=== PATIENT | female | born 1950 | race Caucasian/White ===

== ENCOUNTER 2017-06-11 17:02 | Emergency (ER) | payer OTHER, BC ==
[2017-06-11] MEDS ORDERED: LET GEL TOPICAL 1 EA SYR TP ONE (17:20)
--- NOTE | 2017-06-11 17:25 | EDPHY ---
H & P Time Seen by Provider: 06/11/17 17:14 HPI/ROS: CHIEF COMPLAINT: Right hand pain History by patient and family HISTORY OF PRESENT ILLNESS: 66-year-old woman status post stroke who is wheelchair-bound is brought in by her family after her right hand which is weak and immobile got caught between the wheelchair and wall going up the ramp to her house crushing her hand. Her last tetanus shot was 6 years ago. They deny any other pain or injury. She does complain of pain in her hand. Patient is on Plavix. REVIEW OF SYSTEMS: As in HPI, and all other systems reviewed and are negative Smoking Status: Current every day smoker Physical Exam: General Appearance: Alert and no distress. Head: Normocephalic, atraumatic, poor dentition Eyes: Pupils equal and round no injection. Extraocular movements are intact. Musculoskeletal: Neck is supple and nontender. Extremities: Right hand positive large hematoma over dorsal 1st and 2nd metacarpals with multiple abrasions, chronic contraction of all fingers, distal cap refill less than 2 sec, distal sensation is difficult to assess. Skin: No rashes or lesions except as described above. Constitutional: Initial Vital Signs Temperature (C) 37.2 C 06/11/17 17:32 Heart Rate 85 06/11/17 17:32 Respiratory Rate 14 06/11/17 17:32 Blood Pressure 109/73 06/11/17 17:32 O2 Sat (%) 92 06/11/17 17:32 O2 Delivery Mode Room Air Allergies/Adverse Reactions: Sulfa (Sulfonamide Antibiotics) Allergy (Severe, Verified 06/11/17 17:28) Hives adhesive Allergy (Verified 06/11/17 17:28) Home Medications: Medication Instructions Recorded LEVETIRACETAM [Keppra 750 mg] 750 mg PO BID 06/01/15 Verapamil ER [Calan SR/ER 240MG 240 mg PO DAILY8 06/01/15 (*)] lamoTRIgine [Lamictal] 200 mg PO BID 06/01/15 Clopidogrel Bisulfate [Plavix] 75 mg PO DAILY #30 tab 06/02/15 Rosuvastatin Calcium [Crestor 5mg] 5 mg PO DAILY #30 06/02/15 Celexa 06/11/17 MDM/Departure - MDM Imaging: I viewed and interpreted images myself Medications Given: Discontinued Medications Tetracaine/Epinephrine/Lidocaine (Let Gel Topical) 1 ea TP EDNOW ONE Stop: 06/11/17 17:21 Last Admin: 06/11/17 17:25 Dose: 1 ea ED Course/Re-evaluation: 66-year-old woman with history of stroke and right arm weakness presents with injury to right hand. X-ray shows no evidence of fracture. Exam is consistent with large hematoma. Abrasions were cleaned and dressed. We discussed home care and return precautions for signs and symptoms of infection. Patient and family expressed understanding. - Depart Disposition: Home, Routine, Self-Care Clinical Impression: Hematoma Abrasion hand Qualifiers: Encounter type: initial encounter Laterality: right Qualified Code(s): S60.511A - Abrasion of right hand, initial encounter Condition: Good Instructions: Contusion in Adults (ED) Additional Instructions: You were seen by Dr. Elaine Lance today. Ice your hand to relieve pain and swelling. Watch for signs and symptoms of infection including but not limited to increased pain and redness, red streaking up the arm, fever or pus. Return for any worsening or new concerns. Referrals: Boo Isaacs MD [Primary Care Provider] - As per Instructions
[2017-06-11 17:39] VITALS: BP 109/73; PULSE 85; RESP 14; TEMP 99; O2SAT 92
[2017-06-11] MEDS ORDERED: ACETAMINOPHEN 325 MG TAB ONE (18:24)
[2017-06-11] MEDS ORDERED: ACETAMINOPHEN 325 MG TAB PO ONE (18:25)
== END 2017-06-11 18:48 | disposition home or self-care (01) ==
LOC: CED 17:02
DX: S60.511A Abrasion of right hand, initial encounter (principal); S60.221A Contusion of right hand, initial encounter; F17.200 Nicotine dependence, unspecified, uncomplicated; W23.0XXA Caught, crushed, jammed, or pinched between moving objects, initial encounter; Y92.009 Unspecified place in unspecified non-institutional (private) residence as the place of occurrence of the external cause
CPT/HCPCS: 73130-PO